=== PATIENT | male | born 1990 | race Caucasian/White ===

== ENCOUNTER 2019-12-19 17:18 | Emergency (ER) | payer MEDICAID ==
[~2019-12-19] VITALS: Ht 170.2 cm; Wt 99.8 kg
[2019-12-19 17:28] VITALS: Ht 170.2 cm; Wt 99.8 kg
[2019-12-19 18:12] VITALS: BP 120/71
== END 2019-12-19 18:12 | disposition home or self-care (01) ==
LOC: ED 17:18
DX: S63.256A Unspecified dislocation of right little finger, initial encounter (principal); X58.XXXA Exposure to other specified factors, initial encounter